=== PATIENT | male | born 1955 | race Caucasian/White ===

== ENCOUNTER 2020-01-02 09:06 | Emergency (ER) | payer SELFPAY ==
[~2020-01-02] VITALS: Ht 190.5 cm; Wt 83.9 kg
[~2020-01-02 09:06] MED LIST: ALPR.25T; BETA15CR5; CEPH-38 PO; CYCL10TA9; CYCL10TA9 PO; DOXY-13 PO; HYDR-2856 PO; HYDR-34; HYDR1TAB PO; LOVA40TA2; METH4TAB PO; MPR22T TP; PROP1TAB77 PO; RNT150T; SULF1TAB38 PO; TRAZODONE
[2020-01-02] MEDS ORDERED: morphine INJ 10 MG/ML 1ML (SYR OR VIAL) IVP STA (09:49)
[2020-01-02] MEDS ORDERED: NS IV 1000 ML 1,000 ML IV SCH ×2 (10:00→12:15)
[2020-01-02] MEDS ORDERED: ONDANSETRON 4 MG/2 ML (SDV) Z0FRAN IVP ONE ×2 (10:00→12:15)
--- NOTE | 2020-01-02 10:07 | Diagnostic Imaging Report ---
INDICATION: Cough. TIME OF EXAM: 09:50 a.m. COMPARISON: Comparison is made with prior chest from 01/06/2009. FINDINGS: Heart size is normal. Lungs are clear. No infiltrates are seen. There is no effusion or pneumothorax. IMPRESSION: No acute cardiopulmonary process is detected. Dictated by: Dictated on workstation # [id number]
--- NOTE | 2020-01-02 10:33 | ED General ---
General Chief Complaint: Abdominal/GI Problems Stated Complaint: DIARRHEA W/ BLOOD; WOUND CHECK Nursing Triage Note: Patient reports his is an inpatient at [facility] and he has been unable to find a ride to [place]. He states he has had nausea/vomiting and diarrhea with blood through his colostomy for 3-4 days. He also reports his skin around his colostomy is more reddened than usual, large hernia and scarring to abdomen from multiple surgeries. Nursing Sepsis Screen: No Definite Risk History of Present Illness Date Seen by Provider: Jan 02, 2020 Time Seen by Provider: 10:28 Initial Comments Patient presenting to the emergency department for evaluation of multiple complaints. He initially said that he was wearing a ride to get to [place] as his is an inpatient at [facility] for DKA. 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 He was living in [place] up until approximately 35 days ago and now they have been living with his 's child here in [place] however he says they are into drugs and they have been stealing their Social Security and disability benefits and now they are living in a motel. He told the nurse something different that she is staying with his [id number]. Patient says yes to every review of systems question as he says he is having abdominal pain fevers chills nausea vomiting diarrhea chest pain shortness of breath cough etc. he says that he is out of ostomy bags and has used his last 1. He is in no obvious distress with normal vital signs. Allergies and Home Medications Allergies Coded Allergies: Cortisone (Unverified Allergy, Mild, 04/20/09) Methotrexate (Unverified Allergy, Mild, 01/06/09) Penicillins (Unverified Allergy, Mild, 01/06/09) Tramadol (Unverified Allergy, Mild, 01/06/09) Uncoded Allergies: ANCID (Allergy, Mild, 01/06/09) QUAL LOTION (Allergy, Mild, 05/10/09) Home Medications Cephalexin Monohydrate 500 Mg Capsule, 1 EACH PO TID Prescribed by: TRAVIS ERIC on 04/20/09 0027 Doxycycline Hyclate 100 Mg Capsule, 0 PO DAILY 1 CAP Q12HR TODAY, THEN 1 CAP DAILY Prescribed by: CARYN AGUILLON on 05/10/091938 Hydrocodone Bit/Acetaminophen 1 Each Tablet, 1-2 EACH PO Q4HR PRN Prescribed by: MARICRUZ SANTA on 11/02/1023 Hydroxyzine Hcl 25 Mg Tablet, 1 EACH PO TID Prescribed by: TRAVIS ERIC on 04/20/0926 Hydroxyzine Hcl 25 Mg Tablet, 1 EACH PO QID Prescribed by: CARYN AGUILLON on 05/10/092003 Methylprednisolone 4 Mg/Dose-Pack Tab.ds.pk, 0 PO UD Prescribed by: TRAVIS ERIC on 04/20/0926 Mupirocin 22 Gm Tube, 0 TP TID APPLY TO SPARINGLY TO AFFECTED AREA(S) Prescribed by: CARYN AGUILLON on 05/10/091938 Trimethoprim/Sulfamethoxazole 1 Ea Tablet, 1 EA PO BID Prescribed by: MARICRUZ SANTA on 11/02/1023 Patient Home Medication List Home Medication List Reviewed: Yes Review of Systems Review of Systems Constitutional: chills, fever EENTM: throat pain Respiratory: cough, short of breath Cardiovascular: chest pain Gastrointestinal: abdominal pain, diarrhea, nausea, vomiting Genitourinary: decreased output Musculoskeletal: back pain Psychiatric/Neurological: Headache Past Nwqvoyh-Vshmbo-Elqiuv Hx Patient Social History Alcohol Use: Denies Use Recreational Drug Use: No Smoking Status: Current Everyday Smoker Type Used: Cigarettes 2nd Hand Smoke Exposure: No Recent Foreign Travel: No Contact w/Someone Who Travel: No Recent Infectious Disease Expo: No Recent Hopitalizations: No Physical Abuse: No Sexual Abuse: No Mistreated: No Fear: No Seasonal Allergies Seasonal Allergies: No Past Medical History Surgeries: Yes (colostomy, colectomy, right hip surgery, abdominal aneurysm repair) Bowel Surgery, Coronary Stent Respiratory: No Cardiac: Yes (abdominal aneurysm, heart failure) Aneurysm, Coronary Artery Disease, Heart Attack Genitourinary: No Gastrointestinal: Yes (colostomy) Musculoskeletal: Yes Rheumatoid Arthritis Endocrine: No HEENT: No Cancer: No Psychosocial: No Integumentary: No Physical Exam Vital Signs Vital Signs - First Documented 01/02/20 09:23 Temp 36.4 Pulse 98 Resp 18 B/P (MAP) 141/72 (95) Pulse Ox 95 O2 Delivery Room Air Capillary Refill : Less Than 3 Seconds Height, Weight, BMI Height: '" Weight: lbs. oz. kg; 23.00 BMI Method:Stated General Appearance: Chronically ill HEENT: PERRL/EOMI Neck: Supple Respiratory: Lungs Clear, No Respiratory Distress Cardiovascular: Regular Rate, Rhythm, No Edema Gastrointestinal: Soft, Other (large complex abdominal scar with likely large hernia and diffuse tenderness to palpation with voluntary guarding but no rebound) Rectal: Other (stool from ostomy appears to be loose and brown and was hemoccul t negative) Back: No Vertebral Tenderness Neurologic/Psychiatric: Alert, Oriented x3 Skin: Warm/Dry Focused Exam Lactate Level 01/02/20 10:30: Lactic Acid Level 1.29 Lactic Acid Level Laboratory Tests Test 01/02/20 10:30 Lactic Acid Level 1.29 MMOL/L (0.50-2.00) Progress/Results/Core Measures Suspected Sepsis Recent Fever Within 48 Hours: No Infection Criteria Present: None New/Unexplained Altered Menta: No Sepsis Screen: No Definite Risk SIRS Temperature: Pulse: 98 Respiratory Rate: 18 Laboratory Tests 01/02/20 10:25: White Blood Count 5.5 Blood Pressure 141 /72 Mean: 95 01/02/20 10:30: Lactic Acid Level 1.29 Laboratory Tests 01/02/20 10:25: Creatinine 0.79, INR Comment 1.0, Platelet Count 328, Total Bilirubin 0.7 Results/Orders Lab Results Laboratory Tests Test 01/02/20 10:25 01/02/20 10:30 01/02/20 11:08 Range/Units White Blood Count 5.5 4.3-11.0 10^3/uL Red Blood Count 3.94 L 4.35-5.85 10^6/uL Hemoglobin 13.1 L 13.3-17.7 G/DL Hematocrit 37 L 40-54 % Mean Corpuscular Volume 93 80-99 FL Mean Corpuscular Hemoglobin 33 25-34 PG Mean Corpuscular Hemoglobin Concent 36 32-36 G/DL Red Cell Distribution Width 12.4 10.0-14.5 % Platelet Count 328 130-400 10^3/uL Mean Platelet Volume 9.3 7.4-10.4 FL Immature Granulocyte % (Auto) 0 % Neutrophils (%) (Auto) 65 42-75 % Lymphocytes (%) (Auto) 25 12-44 % Monocytes (%) (Auto) 7 0-12 % Eosinophils (%) (Auto) 2 0-10 % Basophils (%) (Auto) 1 0-10 % Neutrophils # (Auto) 3.5 1.8-7.8 X 10^3 Lymphocytes # (Auto) 1.4 1.0-4.0 X 10^3 Monocytes # (Auto) 0.4 0.0-1.0 X 10^3 Eosinophils # (Auto) 0.1 0.0-0.3 10^3/uL Basophils # (Auto) 0.1 0.0-0.1 10^3/uL Immature Granulocyte # (Auto) 0.0 0.0-0.1 10^3/uL Prothrombin Time 13.6 12.2-14.7 SEC INR Comment 1.0 0.8-1.4 Activated Partial Thromboplast Time 27 24-35 SEC D-Dimer 2.33 H 0.00-0.49 UG/ML Sodium Level 137 135-145 MMOL/L Potassium Level 3.8 3.6-5.0 MMOL/L Chloride Level 100 98-107 MMOL/L Carbon Dioxide Level 22 21-32 MMOL/L Anion Gap 15 H 5-14 MMOL/L Blood Urea Nitrogen 10 7-18 MG/DL Creatinine 0.79 0.60-1.30 MG/DL Estimat Glomerular Filtration Rate > 60 BUN/Creatinine Ratio 13 Glucose Level 101 70-105 MG/DL Calcium Level 9.5 8.5-10.1 MG/DL Corrected Calcium 9.3 8.5-10.1 MG/DL Total Bilirubin 0.7 0.1-1.0 MG/DL Aspartate Amino Transf (AST/SGOT) 27 5-34 U/L Alanine Aminotransferase (ALT/SGPT) 17 0-55 U/L Alkaline Phosphatase 96 40-136 U/L Troponin I < 0.30 <0.30 NG/ML Total Protein 7.7 6.4-8.2 GM/DL Albumin 4.2 3.2-4.5 GM/DL Lactic Acid Level 1.29 0.50-2.00 MMOL/L Urine Color YELLOW Urine Clarity CLEAR Urine pH 6.0 5-9 Urine Specific Slick 1.025 H 1.016-1.022 Urine Protein 1+ H NEGATIVE Urine Glucose (UA) NEGATIVE NEGATIVE Urine Ketones 3+ H NEGATIVE Urine Nitrite NEGATIVE NEGATIVE Urine Bilirubin 2+ H NEGATIVE Urine Urobilinogen 2.0 < = 1.0 MG/DL Urine Leukocyte Esterase NEGATIVE NEGATIVE Urine RBC (Auto) NEGATIVE NEGATIVE Urine RBC NONE /HPF Urine WBC NONE /HPF Urine Squamous Epithelial Cells 2-5 /HPF Urine Crystals NONE /LPF Urine Bacteria NEGATIVE /HPF Urine Casts NONE /LPF Urine Mucus SMALL H /LPF Urine Culture Indicated NO My Orders Orders - IVETH LIVINGSTON DO Comprehensive Metabolic Panel (01/02/20 09:49) Cbc With Automated Diff (01/02/20 09:49) Iv/Invasive Line Insertion .IV start (01/02/20 09:49) Fibrin Degradation Products (01/02/20 09:49) Ua Culture If Indicated (01/02/20 09:49) Troponin I Fs (01/02/20 09:49) Partial Thromboplastin Time (01/02/20 09:49) Probnp Fs (01/02/20 09:49) Protime With Inr (01/02/20 09:49) Lipase (01/02/20 09:49) Lactic Acid Analyzer (01/02/20 09:49) Ekg Tracing (01/02/20 09:49) Chest 1 View Ap/Pa Only (01/02/20 09:49) Ns Iv 1000 Ml (Sodium Chloride 0.9%) (01/02/20 10:00) Morphine Injection (Morphine Injection (01/02/20 09:49) Ondansetron Injection (Zofran Injectio (01/02/20 10:00) Ct Zoie Chest/Noang Abd-Pelv W (01/02/20 11:16) Iohexol Injection (Omnipaque 350 Mg/Ml 1 (01/02/20 11:45) Received Contrast (Hold Metformin- Contr (01/02/20 11:45) Sodium Chloride Flush (Catheter Flush Sy (01/02/20 11:45) Ns (Ivpb) (Sodium Chloride 0.9% Ivpb Bag (01/02/20 11:45) Ns Iv 1000 Ml (Sodium Chloride 0.9%) (01/02/20 12:15) Hydromorphone Injection (Dilaudid Inject (01/02/20 12:15) Ondansetron Injection (Zofran Injectio (01/02/20 12:15) Medications Given in ED Current Medications Medications Dose Ordered Sig/Vero Route Start Time Stop Time Status Last Admin Dose Admin Hydromorphone HCl 1 mg ONCE ONCE IVP 01/02/20 12:15 01/02/20 12:17 DC 01/02/20 12:54 1 MG Iohexol 125 ml ONCE ONCE IV 01/02/20 11:45 01/02/20 11:46 DC 01/02/20 12:36 125 ML Ondansetron HCl 4 mg ONCE ONCE IVP 01/02/20 10:00 01/02/20 10:01 DC 01/02/20 10:55 4 MG Ondansetron HCl 4 mg ONCE ONCE IVP 01/02/20 12:15 01/02/20 12:17 DC 01/02/20 12:54 4 MG Sodium Chloride 10 ml NEEDED PRN IV 01/02/20 11:45 01/02/20 12:36 10 ML Sodium Chloride 100 ml ONCE ONCE IV 01/02/20 11:45 01/02/20 11:46 DC 01/02/20 12:36 80 ML Vital Signs/I&O 01/02/20 09:23 Temp 36.4 Pulse 98 Resp 18 B/P (MAP) 141/72 (95) Pulse Ox 95 O2 Delivery Room Air Capillary Refill : Less Than 3 Seconds Blood Pressure Mean: 95 Progress Note : Progress Note Given his complex history and presenting complaints will check labs imaging treat symptoms and reassess. Patient's workup did not show any acute pathology as his labs and urinalysis were unremarkable. Patient also had CT scans done which showed no acute chest pathology. His abdominal CT showed itself findings of aneurysm with mural thrombus but no active extravasation. It appears that his grafts were open. There is no acute obstruction or infection. He says his pain is somewhat improved and he was able to tolerate fluids by mouth with no difficulty. I told patient the results of all his tests and the incidental findings. Patient was very upset that I was not finding any acute pathology as he very much wants to be transferred to [place]. I asked him why he wanted to be transferred to [place] so bad and he said that is where his is at and he was kicked out of his motel as he has no money left and he is now homeless. He says that he does not live here and he has nowhere to go. I told him that given our bed situation during this pandemic and the fact that I have no criteria for admission I cannot send him to [place] without a reason to be admitted to the hospital. We are going to look into homeless shelters and resources that we can provide him. Patient told he should get a primary care provider locally and fo llow-up as soon as he can and he can was come back to emergency Department sooner with worsening pain fevers vomiting or other general concerns. Departure Impression Primary Impression: Abdominal pain Qualified Codes: R10.84 - Generalized abdominal pain Additional Impression: Nausea and vomiting Disposition: HOME, SELF-CARE Condition: Stable Departure-Patient Inst. Referrals: NO,LOCAL PHYSICIAN (PCP/Family) Primary Care Physician Patient Instructions: Severe Abdominal Pain, Adult (DC) Scripts Ondansetron (Ondansetron Odt) 4 Mg Tab.rapdis 4 MG PO Q6H PRN for NAUSEA/VOMITING-1ST LINE, #14 TAB Prov: IVETH LIVINGSTON DO 01/02/20 Hydrocodone/Acetaminophen (Hydrocodone-Acetamin 5-325 mg) 1 Each Tablet 1 EACH PO Q6H PRN for PAIN-SEVERE (8-10), #10 TAB Prov: IVETH LIVINGSTON DO 01/02/20 IVETH LIVINGSTON DO Jan 02, 2020 10:33
[2020-01-02 10:36] LABS: BASOPHILS # (AUTO) 0.1 10^3/uL (0.0-0.1); BASOPHILS % (AUTO) 1 % (0-10); EOSINOPHILS # (AUTO) 0.1 10^3/uL (0.0-0.3); EOSINOPHILS % (AUTO) 2 % (0-10); HEMATOCRIT 37 % (40-54); HEMOGLOBIN 13.1 G/DL (13.3-17.7); LYMPHOCYTES # (AUTO) 1.4 X 10^3 (1.0-4.0); LYMPHOCYTES % (AUTO) 25 % (12-44); MEAN CORPUSCULAR HEMOGLOBIN 33 PG (25-34); MEAN CORPUSCULAR HGB CONC 36 G/DL (32-36); MEAN CORPUSCULAR VOLUME 93 FL (80-99); MEAN PLATELET VOLUME 9.3 FL (7.4-10.4); MONOCYTES # (AUTO) 0.4 X 10^3 (0.0-1.0); MONOCYTES % (AUTO) 7 % (0-12); NEUTROPHILS # (AUTO) 3.5 X 10^3 (1.8-7.8); NEUTROPHILS % (AUTO) 65 % (42-75); PLATELET COUNT 328 10^3/uL (130-400); WHITE BLOOD COUNT 5.5 10^3/uL (4.3-11.0)
[2020-01-02 11:06] LABS: CARBON DIOXIDE 22 MMOL/L (21-32); CHLORIDE 100 MMOL/L (98-107); POTASSIUM 3.8 MMOL/L (3.6-5.0); SODIUM 137 MMOL/L (135-145)
[2020-01-02 11:07] LABS: ALANINE AMINOTRANSFERASE 17 U/L (0-55); ALBUMIN 4.2 GM/DL (3.2-4.5); ALKALINE PHOSPHATASE 96 U/L (40-136); BILIRUBIN,TOTAL 0.7 MG/DL (0.1-1.0); BUN/CREATININE RATIO 13; CALCIUM 9.5 MG/DL (8.5-10.1); CREATININE SERUM 0.79 MG/DL (0.60-1.30); GFR ESTIMATED > 60; GLUCOSE 101 MG/DL (70-105); TOTAL PROTEIN 7.7 GM/DL (6.4-8.2)
[2020-01-02 11:08] LABS: FIBRIN DEGRADATION PRODUCTS 2.33 UG/ML (0.00-0.49); PROTHROMBIN TIME PATIENT 13.6 SEC (12.2-14.7)
[2020-01-02 11:25] LABS: CLARITY,URINE CLEAR; COLOR,URINE YELLOW; GLUCOSE, URINE (UA) NEGATIVE (NEGATIVE); KETONES,URINE 3+ (NEGATIVE); PROTEIN,URINE 1+ (NEGATIVE)
[2020-01-02 11:26] LABS: BACTERIA,URINE NEGATIVE /HPF; BILIRUBIN,URINE 2+ (NEGATIVE); LEUKOCYTE ESTERASE ,URINE NEGATIVE (NEGATIVE); NITRITE,URINE NEGATIVE (NEGATIVE)
[2020-01-02] MEDS ORDERED: IOHEXOL 350 MG/ML 150 ML (OMNIPAQUE 350) VIAL IV ONE (11:45)
[2020-01-02] MEDS ORDERED: HOLD METFORMIN - RECEIVED CONTRAST 20 ML VIAL IV SCH (11:45)
[2020-01-02] MEDS ORDERED: NS 100 ML (IVPB) BAG IV ONE (11:45)
[2020-01-02] MEDS ORDERED: HYDROmorphone 2 MG/ML VIAL (DILAUDID) IVP ONE (12:15)
[2020-01-02] MEDS: CATHETER FLUSH 10 ML SYR IV PRN (12:36)
--- NOTE | 2020-01-02 13:11 | Diagnostic Imaging Report ---
INDICATION: abd pain, diarrhea h/o aaa repair with complication and ostomy EXAM: CTA chest, abdomen and pelvis TECHNIQUE: Thin axial sections through the chest, abdomen and pelvis are obtained following intravenous contrast bolus. Multiplanar MIP images were reconstructed and reviewed. All CT scans use one or more of the following dose optimizing techniques: automated exposure control, MA and/or KvP adjustment based on patient size and exam type or iterative reconstruction. CORRELATION is made with prior CT from 01/06/2009. CT ANGIOGRAM CHEST: The thoracic aorta does show some ectasia of the descending portion and atherosclerotic changes but no dissection is seen. Visualized pulmonary arteries appear to be widely patent. No pericardial or pleural fluid is identified. Centrilobular emphysematous changes are identified throughout both lungs with some bullous changes in the upper lobes. No infiltrate, nodule or mass is detected. IMPRESSION: 1. No evidence of thoracic aortic dissection or pulmonary embolism. 2. Bullous emphysematous changes. No acute feature is detected. CT ABDOMEN AND PELVIS: There is some aneurysmal dilatation of the abdominal aorta at the level of the kidneys measuring 3.6 AP diameter. Moderate amount of mural thrombus is present. The patient appears to have undergone aortobiiliac graft. There are stents within both common iliac arteries which appear to be patent. No dissection is identified. The liver is unremarkable. Gallbladder is unremarkable. No biliary ductal dilatation is seen. The pancreas and spleen are unremarkable. No adrenal mass is detected. Kidneys are unremarkable. Postsurgical changes of anterior abdominal wall are noted. Patient does have an ostomy in the left lower quadrant. Bowel loops are nondilated. Appendix is identified in the right lower quadrant and shows some slight dilatation but no significant periappendiceal inflammatory changes are identified. There is some free fluid in the pelvis. The bladder is decompressed. No free air is identified. IMPRESSION: 1. Abdominal aortic aneurysm with aortobiiliac graft which appears to be patent. No dissection is seen. 2. Postsurgical changes to the anterior abdominal wall and left lower quadrant ostomy. There is some free fluid in the pelvis, nonspecific. No other significant abnormality is detected. Dictated by: Dictated on workstation # [id number]
[2020-01-02] MEDS ORDERED: ACHD5005 PO (13:38)
[2020-01-02] MEDS ORDERED: ONDA4TAB11 PO (13:38)
[2020-01-02 14:33] LABS: LIPASE 12 U/L (8-78)
[2020-01-02 16:27] VITALS: BP 151/73
== END 2020-01-02 16:17 | disposition home or self-care (01) ==
LOC: EDUNIT# 09:06 → ER FS 09:08
DX: R10.84 Generalized abdominal pain (principal); R11.2 Nausea with vomiting, unspecified; I25.2 Old myocardial infarction; F17.210 Nicotine dependence, cigarettes, uncomplicated; Z95.5 Presence of coronary angioplasty implant and graft; Z88.0 Allergy status to penicillin; Z88.5 Allergy status to narcotic agent; Z88.8 Allergy status to other drugs, medicaments and biological substances; Z79.52 Long term (current) use of systemic steroids
CPT/HCPCS: 36415; 71045; 71275; 74177; 80053; 81000; 82274; 83605; 83690; 83880; 84484; 85025; 85379; 85610; 85730